=== PATIENT | female | born 1940 | race Caucasian/White ===

== ENCOUNTER 2018-02-27 09:24 | Outpatient (CLI) | payer OTHER ==
[~2018-02-27 09:24] MED LIST: LIPITOR20 MG; TENORMIN25 MG
== END 2018-02-27 09:33 | disposition home or self-care (01) ==
LOC: RAD 09:24
DX: J30.89 Other allergic rhinitis (principal); R06.02 Shortness of breath; J32.8 Other chronic sinusitis

== ENCOUNTER → 2019-01-21 | Emergency (ER) | payer OTHER ==
[~2019-01-21] VITALS: Ht 157.5 cm; Wt 65.8 kg
[~2019-01-21] MED LIST changes: +AMOX-CLAV 875-1 EACH PO; +ORASEP SPRAY30 ML MM
== END | disposition home or self-care (01) ==
LOC: ER 06:29
DX: J39.2 Other diseases of pharynx (principal)

== ENCOUNTER 2021-02-18 14:03 | Outpatient (CLI) | payer OTHER | END 2021-02-18 14:08 | disposition home or self-care (01) | LOC: RAD 14:03 | PROVIDERS: ATTEND Physical Medicine & Rehabilitation | DX: M54.5 Low back pain (principal) ==

== ENCOUNTER 2021-12-28 15:43 | Outpatient (CLI) | payer OTHER | END 2021-12-28 15:47 | disposition home or self-care (01) | LOC: LAB 15:43 | PROVIDERS: ATTEND Radiology Diagnostic Radiology | DX: R13.11 Dysphagia, oral phase (principal) ==

== ENCOUNTER 2021-12-29 09:05 | Outpatient (CLI) | payer OTHER | END 2021-12-29 09:07 | disposition home or self-care (01) | LOC: TOM 09:05 | DX: R13.11 Dysphagia, oral phase (principal); K31.1 Adult hypertrophic pyloric stenosis | CPT/HCPCS: 74177; Q9965 ==

== ENCOUNTER 2022-05-16 09:44 | Outpatient (CLI) | payer OTHER | END 2022-05-16 09:53 | disposition home or self-care (01) | LOC: RX STUDY 09:44 | PROVIDERS: ATTEND Internal Medicine Gastroenterology | DX: R13.14 Dysphagia, pharyngoesophageal phase (principal) ==

== ENCOUNTER 2022-08-03 09:30 | Outpatient (CLI) | payer OTHER | END 2022-08-03 09:43 | disposition home or self-care (01) | LOC: TOM 09:30 | PROVIDERS: ATTEND Internal Medicine Gastroenterology | DX: R13.14 Dysphagia, pharyngoesophageal phase (principal) ==

== ENCOUNTER 2023-03-01 13:32 | Emergency (ER) | payer OTHER ==
[~2023-03-01] VITALS: Ht 157.5 cm; Wt 47.6 kg
[2023-03-01] MEDS ORDERED: CARAFATE1 GM/10 ML PO (21:14)
[2023-03-01] MEDS ORDERED: PROTONIX40 MG PO (21:14)
== END 2023-03-01 21:33 | disposition home or self-care (01) ==
LOC: ER 13:32
DX: R10.9 Unspecified abdominal pain (principal); I11.9 Hypertensive heart disease without heart failure; E78.49 Other hyperlipidemia; Z95.0 Presence of cardiac pacemaker

== ENCOUNTER 2023-08-17 21:25 | Emergency (ER) | payer OTHER ==
[~2023-08-17] VITALS: Ht 157.5 cm; Wt 56.7 kg
[~2023-08-17 21:25] MED LIST changes: +CARAFATE1 GM/10 ML PO; +PROTONIX40 MG PO
[2023-08-17] MEDS ORDERED: NORVASC5 MG PO (21:43)
[2023-08-17] MEDS ORDERED: TOPROL XL50 M1 PO (21:44)
[2023-08-17] MEDS ORDERED: SIMVASTATIN80 MG PO (21:44)
[2023-08-17] MEDS ORDERED: MEMANTINE HCL5 MG PO (21:44)
[2023-08-17] MEDS ORDERED: PLAVIX75 MG (21:44)
== END 2023-08-17 23:15 | disposition home or self-care (01) ==
LOC: ER 21:26
DX: S70.02XA Contusion of left hip, initial encounter (principal); W17.89XA Other fall from one level to another, initial encounter; Y93.9 Activity, unspecified; Y92.89 Other specified places as the place of occurrence of the external cause; Y99.9 Unspecified external cause status; I10 Essential (primary) hypertension; G30.9 Alzheimer's disease, unspecified; F02.80 Dementia in other diseases classified elsewhere, unspecified severity, without behavioral disturbance, psychotic disturbance, mood disturbance, and anxiety; M54.89 Other dorsalgia

== ENCOUNTER 2023-08-29 10:18 | Outpatient (CLI) | payer OTHER ==
[~2023-08-29 10:18] MED LIST changes: +MEMANTINE HCL5 MG PO; +NORVASC5 MG PO; +PLAVIX75 MG; +SIMVASTATIN80 MG PO; +TOPROL XL50 M1 PO
== END 2023-08-29 10:30 | disposition home or self-care (01) ==
LOC: TOM 10:18
DX: S30.0XXA Contusion of lower back and pelvis, initial encounter (principal); S80.12XA Contusion of left lower leg, initial encounter; S80.11XA Contusion of right lower leg, initial encounter; X58.XXXA Exposure to other specified factors, initial encounter; Y93.9 Activity, unspecified; Y92.9 Unspecified place or not applicable; Y99.9 Unspecified external cause status

== ENCOUNTER → 2023-10-25 08:40 | Outpatient (CLI) | payer OTHER ==
[2023-10-25 09:39] LABS: PH,URINE 5.5 (5.0-8.0); URINE APPEARANCE Clear; URINE BILIRRUBIN Negative (NEGATIVE); URINE BLOOD Negative; URINE COLOR Dark Yellow; URINE GLUCOSE Negative (NEGATIVE); URINE LEUKOCYTE Negative; URINE NITRATE Negative; URINE PROTEIN Negative (NEGATIVE); URINE UROBILINOGEN 0.2 E.U./dl
[2023-10-25 09:40] LABS: HEMOGLOBIN 13.2 g/dL (12.0-15.00); MEAN CELL VOLUME 84.9 fL (80.00-100.00); MEAN CORPUSCULAR HEMOGLOBIN 28.7 pg (27.00-32.0); MEAN CORPUSCULAR HGB CONC 33.8 g/dl (32.0-36.0); PLATELET COUNT 382 K/uL (150-450); RED CELL DISTRIBUTION WIDTH 16.1 % (11.5-14.5)
[2023-10-25 09:44] LABS: URINE BACTERIA 8.8 uL (0.0-1933); URINE EPITHELIAL CELLS 7.4 uL (0.0-38.8); URINE RBC 3.3 uL (0.0-20.8); URINE WBC 2.9 uL (0.0-23.2)
[2023-10-25 10:08] LABS: ALBUMIN 3.3 gm/dL (3.4-5.0); BILIRUBIN TOTAL 0.68 mg/dL (0.3-1.2); CALCIUM 9.3 mg/dL (8.5-10.1); CHOL HDL RATIO 2.3 (0-5.0); CREATININE SERUM 0.59 mg/dL (0.55-1.02); GFR 97.34; POTASSIUM 3.96 mEq/L (3.5-5.1); TOTAL PROTEIN 6.3 gm/dL (6.4-8.2); TSH 1.74 uIU/mL (0.358-3.74)
== END | disposition home or self-care (01) ==
LOC: LAB 08:40
PROVIDERS: ATTEND Internal Medicine Cardiovascular Disease
DX: D50.8 Other iron deficiency anemias (principal); R79.9 Abnormal finding of blood chemistry, unspecified; I10 Essential (primary) hypertension; R74.02 Elevation of levels of lactic acid dehydrogenase [LDH]; K76.89 Other specified diseases of liver; E03.8 Other specified hypothyroidism

== ENCOUNTER 2023-11-20 10:48 | Emergency (ER) | payer OTHER ==
[~2023-11-20] VITALS: Ht 157.5 cm; Wt 45.4 kg
[2023-11-20] MEDS ORDERED: SIMVASTATIN5 MG (10:53)
[2023-11-20] MEDS ORDERED: NORVASC2.5 MG (10:53)
[2023-11-20] MEDS ORDERED: REMINYL4 MG (10:54)
[2023-11-20] MEDS ORDERED: BUSPIRONE HCL7.5 MG (10:54)
[2023-11-20] MEDS ORDERED: NAMENDA1 EACH (10:54)
== END 2023-11-20 14:27 | disposition home or self-care (01) ==
LOC: ER 10:48
DX: S09.8XXA Other specified injuries of head, initial encounter (principal); W19.XXXA Unspecified fall, initial encounter; Y93.89 Activity, other specified; Y92.89 Other specified places as the place of occurrence of the external cause; Y99.8 Other external cause status; I10 Essential (primary) hypertension